=== PATIENT | female | born 1945 | race Caucasian/White ===

== ENCOUNTER 2021-04-21 11:16 | Outpatient (CLI) | payer OTHER, BC | END 2021-04-21 15:46 | disposition home or self-care (01) | LOC: SMA 11:16 | DX: Z12.31 Encounter for screening mammogram for malignant neoplasm of breast (principal) | CPT/HCPCS: 77067 ==

== ENCOUNTER 2021-06-25 19:42 | Emergency (ER) | payer OTHER, BC ==
[~2021-06-25] VITALS: Ht 165.1 cm; Wt 90.7 kg
[2021-06-25 20:24] VITALS: BP_SYST 162
[2021-06-25] MEDS: DIPH-TET-PERTUS Vaccine 0.5 ML VIAL (ADACEL) I.M. ONE (23:13)
[2021-06-25] MEDS: LIDOCAINE VISCOUS 2%, 15 ML UDC MM ONE (23:14)
[2021-06-25] MEDS: LIDOCAINE 4% TOPICAL 50 ML BOTTLE MM ONE (23:17)
[2021-06-26 00:02] VITALS: BP_SYST 162
== END 2021-06-26 00:04 | disposition home or self-care (01) ==
LOC: SED 19:42
DX: E11.621 Type 2 diabetes mellitus with foot ulcer (principal); L97.522 Non-pressure chronic ulcer of other part of left foot with fat layer exposed
CPT/HCPCS: 90715; 99283; 99285